=== PATIENT | female | born 1980 | race Caucasian/White ===

== ENCOUNTER 2016-12-02 17:52 | Observation (INO) | payer OTHER ==
[2016-12-02] MEDS: Terbutaline 1 MG/ML SDV SUBCUT SCH ×4 (18:50→20:39)
[2016-12-02] MEDS ORDERED: Lactated Ringers 500 ML IV ONE (18:50)
--- NOTE | 2016-12-02 21:08 | PCM.LDHP ---
L&D History of Present Illness - General Date of Service: 12/02/16 Admit Problem/Dx: Patient Status Order with Admit Dx/Problem 12/02/16 20:54 Patient Status [ADT] Routine Patient Status: Refer to Observation Admission Diagnosis/Problem: complications Reason for Admit: threatened labor Nurse Unit Type: Labor and Delivery Admitting Physician: Jim Benjamin Attending Physician: Jim Benjamin Medicare 96 Hour Certification Statement: This Patient is Admitted for Inpatient Services and is Medically Appropriate and Meets Medical Necessity for Inpatient Admission. I Reasonably Expect the Patient Will Require Inpatient Services That Span a Period of Time Over 2 Midnights. My Rationale for Medically Necessary Inpatient Care Will Be Found in the Admission History & Physical and Progress Notes. I Reasonably Expect the Patient to be Discharged or Transferred Within 96 Hours After Admission to This Critical [facility] Hospital. Admission Diagnosis/Problem Admission Diagnosis/Problem complications Source of Information: Patient History Limitations: Reports: No limitations - History of Present Illness Introduction:: 35-year-old, G5, P3, 013, GE 4 at estimated gestational age of 34 weeks 6 days presented to labor and delivery complaining of contractions hydrated with by mouth and IV fluids and given 3 doses of subcutaneous terbutaline 0.25 and continues to have irregular contractions. Previous x4. Group B strep negative. Patient lives in the [place]. Patient will be placed on observation status . Continue hydration through the night and reevaluation in the morning. Morphine 10 mg/Phenergan 25 mg IM now after permit for in case. 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 On Lovenox 40 mg subcutaneous daily for 6 weeks Timing/Duration: Reports: hour(s): Quality: Reports: Ache, Pressure Improves with: Reports: None Worsens with: Reports: None Associated Symptoms: Reports: N - Related Data Allergies/Adverse Reactions: Allergies Allergy/AdvReac Type Severity Reaction Status Date / Time No Known Allergies Allergy Verified 12/02/16 19:56 Home Medications: Home Meds PNV95/Ferrous Fumarate/FA [ Multivitamins] 1 tab PO DAILY 05/21/14 [ History] Past Medical History : 5 Para: 3 (4334) LMP (Approximate): Social & Family History - Tobacco Use Smoking Status *Q: Never Smoker Second Hand Smoke Exposure: No - Alcohol Use Days Per Week of Alcohol Use: 0 - Recreational Drug Use Recreational Drug Use: No H&P Review of Systems - Review of Systems: Review Of Systems: See Below General: Reports: no symptoms HEENT: Reports: no symptoms Pulmonary: Reports: No Symptoms Cardiovascular: Reports: no symptoms Gastrointestinal: Reports: No symptoms Genitourinary: Reports: no symptoms Musculoskeletal: Reports: no symptoms Skin: Reports: no symptoms Psychiatric: Reports: no symptoms Neurological: Reports: No Symptoms Hematologic/Lymphatic: Reports: no symptoms Immunologic: Reports: no symptoms L&D Exam - Exam Exam: See Below - Vital Signs Vital Signs: Last Vital Signs Temp 98.7 F 12/02/16 18:30 Pulse 86 12/02/16 18:30 Resp 18 12/02/16 18:30 BP 133/68 12/02/16 18:30 Pulse Ox Weight: 221 lb - OB Specific Fundal Height in cm: 35 Contraction Duration (sec): 60 Contraction Frequency (min): 13 Contraction Intensity: Mild movement: active heart tones: present heart tones per min: 155 Heart Rate (FHR) Variability: Moderate (6-25 bmp) Presentation: Vertex Estimated Weight: 6.5 - Cordova Score Cordova Score Cervix Position: Posterior Cordova Score Consistency: Soft Cordova Score Effacement: 0-30% Cordova Score Dilation: Closed Cordova Score 's Station: -3 Cordova Score Total: 2 - Exam General: alert, oriented HEENT: Mucosa moist & pink Neck: supple, trachea midline Lungs: Clear to auscultation, Normal respiratory effort Cardiovascular: regular rate, regular rhythm Abdomen: normal bowel sounds, soft Genitourinary: Normal external exam Extremities: normal inspection Skin: warm, dry, intact Psychiatric: alert, normal affect, normal mood - Patient Data Lab Results last 24 hrs: Laboratory Results - last 24 hr 12/02/16 Range/Units 18:10 Urine Color Light yellow (Yellow) Urine Appearance Slt cloudy H (Clear) Urine pH 7.0 (5.0-8.0) Ur Specific [place] 1.020 (1.005-1.030) Urine Protein Negative (Negative) Urine Glucose (UA) Negative (Negative) Urine Ketones Negative (Negative) Urine Occult Blood Negative (Negative) Urine Nitrite Negative (Negative) Urine Bilirubin Negative (Negative) Urine Urobilinogen 0.2 (0.2-1.0) Ur Leukocyte Esterase Negative (Negative) Urine RBC Not seen (0-5) /hpf Urine WBC 0-5 (0-5) /hpf Ur Squamous Epith Cells 40-50 H (0-5) /hpf Urine Bacteria Few (FEW) /hpf Urine Mucus Not seen (FEW) /hpf - Problem List (1) 34 weeks gestation of SNOMED Code(s): 35556911 ICD Code: Z3A.34 - 34 WEEKS GESTATION OF Status: Acute Current Visit: Yes (2) contractions SNOMED Code(s): 796811932 ICD Code: O47.9 - FALSE LABOR, UNSPECIFIED Status: Acute Current Visit: Yes (3) Maternal care for scar from previous delivery SNOMED Code(s): 465453280 ICD Code: O34.219 - MATERNAL CARE FOR UNSP TYPE SCAR FROM PREVIOUS DEL Status: Acute Current Visit: Yes Qualifiers: Previous delivery type: low transverse Qualified Code(s): O34.211 - Maternal care for low transverse scar from previous delivery (4) Heterozygous for prothrombin [id number] mutation SNOMED Code(s): 979188873 ICD Code: D68.8 - OTHER SPECIFIED COAGULATION DEFECTS Status: Acute Current Visit: Yes (5) 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 SNOMED Code(s): 937585483 ICD Code: D68.8 - OTHER SPECIFIED COAGULATION DEFECTS Status: Acute Current Visit: Yes Problem List Initiated/Reviewed/Updated: No Orders Last 24hrs: Active Orders 24 hr Category Date Time Status Patient Status [ADT] Routine ADT 12/02/16 20:54 Ordered Bedrest Bathroom Privileges [RC] ASDIRECTED Care 12/02/16 20:53 Ordered Heart Tones [RC] CONTINUOUS Care 12/02/16 20:55 Ordered NST [ Non Stress Test] [RC] PER UNIT ROUTINE Care 12/02/16 19:31 Active Notify Provider [RC] PRN Care 12/02/16 20:53 Ordered OB Check [OM.PC] Click To Edit Care 12/02/16 19:31 Ordered Verify Patient Consent Obtain [RC] ASDIRECTED Care 12/02/16 20:57 Ordered Vital Signs [RC] PER UNIT ROUTINE Care 12/02/16 20:53 Ordered Nothing Per Oral Diet [DIET] Diet 12/02/16 Dinner Ordered CBC WITH AUTO DIFF [HEME] Stat Lab 12/02/16 21:01 Ordered CULTURE URINE [RM] Stat Lab 12/02/16 18:10 Received TYPE AND SCREEN [BBK] Stat Lab 12/02/16 21:01 Ordered Lactated Ringers [Ringers, Lactated] 1,000 ml Med 12/02/16 21:00 Ordered IV ASDIRECTED Morphine Med 12/02/16 22:00 Once 10 mg IM ONETIME ONE Promethazine [Phenergan] Med 12/02/16 22:00 Once 25 mg IM ONETIME ONE Resuscitation Status Routine Resus Stat 12/02/16 20:53 Ordered Medication Orders Lactated Ringer's (Ringers, Lactated) 1,000 mls @ 150 mls/hr IV ASDIRECTED TIFFANY Morphine Sulfate (Morphine) 10 mg IM ONETIME ONE Stop: 12/02/16 22:01 Promethazine HCl (Phenergan) 25 mg IM ONETIME ONE Stop: 12/02/16 22:01 Assessment/Plan Comment:: 24 observation status, and reevaluation in a.m.
--- NOTE | 2016-12-02 21:48 | PCM.SN ---
- Free Text/Narrative Note: NST reactive. Irregular contractions, appear to be subsiding.
[2016-12-02] MEDS ORDERED: Promethazine 25 MG/ML SDV IM ONE (22:00)
[2016-12-02] MEDS ORDERED: Morphine 10 MG/ML Syringe IM ONE (22:00)
[2016-12-02] MEDS: Lactated Ringers 1,000 ML IV SCH (22:28)
[2016-12-03] MEDS: Lactated Ringers 1,000 ML IV SCH ×3 (03:05→12:45)
[2016-12-03] MEDS ORDERED: Morphine 10 MG/ML Syringe IM ONE (03:24)
[2016-12-03] MEDS ORDERED: Promethazine 25 MG/ML SDV IM ONE (03:26)
--- NOTE | 2016-12-03 07:02 | PCM.SN ---
- Free Text/Narrative Note: Irregular contractions continue through the night. Given Morphine 10 mg/ Phenergan 25 mg again IM about 0330. Contractions decreased in frequency and have become closed together. Two variable decelerations during the night. BPP ordered now.
[2016-12-03] MEDS ORDERED: NIFEdipine 10 MG Cap ONE (10:08)
[2016-12-03] MEDS ORDERED: Acetaminophen/oxyCODONE 325-5 MG Tab PO PRN (10:27)
--- NOTE | 2016-12-03 10:29 | US ---
Biophysical profile: Multiple real-time images were obtained transabdominally. Comparison: Previous studies are available, most recent is 10/03/16. Dates: LMP: LMP given as 04/02/16, GE 01/07/17, gestational age 35 weeks 0 days Current ultrasound: GE 12/28/16, gestational age 36 weeks 3 days Earliest ultrasound (09/02/16): GE 01/03/17, gestational age 35 weeks 4 days presentation: Cephalic Placenta: Anterior Amniotic fluid: JERMAIN 23.91 cm Measurements: BPD: 9.13 cm - 37 weeks 1 day Head circumference: 33.11 cm - 37 weeks 6 days Abdominal circumference: 33.51 cm - 37 weeks 3 days Femur length: 6.35 cm - 32 weeks 6 days Estimated weight: 2901 g (6 lbs. 6 oz.), estimated weight at the 49th percentile for age by current ultrasound Heart rate: 152 bpm Cervical length: 4.7 cm Growth curves: Growth between the mean and +2 standard deviation lines. Growth felt to be appropriate from prior studies. Biophysical profile: movement 2, breathing movement 0, tone 2, amniotic fluid volume 2 Impression: 1. Single intrauterine fetus currently cephalic in presentation. Dates as noted above. 2. Slightly elevated JERMAIN at 23.91 cm comparing to 17.25 cm on most recent study. 3. 6 out of 8 on biophysical profile. Diagnostic code #5 Scanning technologist gave preliminary report to referring health care provider at exam's completion.
[2016-12-03] MEDS ORDERED: NIFEdipine 10 MG Cap PO SCH (10:30)
[2016-12-03 11:15] VITALS: BP 124/53
--- NOTE | 2016-12-04 06:33 | PCM.DCSUM1 ---
Discharge Summary - Hospital Course Free Text/Narrative:: Anette is a 35-year-old 5 para 3013 female who is evaluated in labor and delivery for contractions. He's been going on for approximately one week. They are very irregular but are painful. She is presently at 35-0/7 weeks gestational age with an GE that us firmly set at 01/07/2017. She has a history of 3 previous sections and planning to have a repeat section at 39 weeks. She has had no bleeding, loss of vaginal fluid. Her heart monitoring has been within normal limits. Her biophysical profile is normal and her NST is reactive. The ultrasound shows no evidence of abruption placenta or other problems which are felt to potentially compromise the baby for the remainder of the . Her contraction pattern shows contractions approximately 15 minutes. She says they are possibly 6-8 on a scale of 10. The are however, not progressive in nature and did not appear to change the cervix. Her cervix has remained closed, thick and very high. Her vital signs have been stable. She's been tried on terbutaline but with no significant improvement. One dose of nifedipine also did not improve her contraction pattern or decrease her pain associated with her contractions. She did have some nausea with nifedipine first not to be on it. She also prefers not any pain medication at this time. She is discharged today to home. Prior to discharge options of care have been discussed with her. These include conservative management with discharge home with possibility of analgesia. Have already reviewed the possibility of other tocolytic therapy but the patient is not interested in this. If increasing contractions occurs would recommend repeat section because of her history of 3 previous C-sections. At this gestational age pediatrics here in [place] is carpal with the baby delivering here but with the understanding that the baby may need to be transferred if lung maturity is noted. The alternative of sending the patient to [place] where intensive care unit services are available is also discussed and patient is not interested in this. She is interested in monitoring and waiting and feels that she can put up with discomfort. She is aware of the importance of activity as an indicator of well-being. - Discharge Data Discharge Date: 12/03/16 Discharge Disposition: Home, Self-Care 01 Condition: Good - Patient Instructions Diet: Regular Diet as Tolerated Activity: As Tolerated Driving: Do Not Drive Showering/Bathing: May Shower (May take bath) Notify Provider of: Fever, Increased Pain, Swelling and Redness, Drainage, Nausea and/or Vomiting - Discharge Plan Home Medications: Home Meds PNV95/Ferrous Fumarate/FA [ Multivitamins] 1 tab PO DAILY 05/21/14 [ History] Aspirin 12/02/16 [History] Referrals: Yadiel Wilder MD [Physician] - (Return to clinic-[facility]-as scheduled-Dr. Wilder.) - Discharge Summary/Plan Comment DC Time >30 min.: No Discharge Summary/Plan Comment: Discharge instructions: 1. Discharge home 2. Regular, high firm, diet was increased calcium and calories. 3. Precautions given concern increased pain, bleeding, leakage of amniotic fluid , contractions, decreased activity. 4. Medications per medication as printed, discussed with him given to the patient. 5. Return to clinic as scheduled with Dr. Wilder-[facility]. Diagnosis: contractions/abdominal pain in [id number]/7 weeks Condition: Good - Patient Data Vitals - Most Recent: Last Vital Signs Temp 37.1 C 12/02/16 18:30 Pulse 86 12/02/16 18:30 Resp 18 12/02/16 18:30 BP 124/53 L 12/03/16 10:12 Pulse Ox Weight - Most Recent: 100.244 kg I&O - Last 24 hours: Intake & Output 12/03/16 12/03/16 12/04/16 14:59 22:59 06:59 Intake Total 1999 Balance 1999 Med Orders - Current: Current Medications Discontinued Medications Lactated Ringer's (Ringers, Lactated) 500 mls @ 500 mls/hr IV .BOLUS ONE Stop: 12/02/16 19:49 Last Infusion: 12/02/16 20:29 Dose: Infused Lactated Ringer's (Ringers, Lactated) 1,000 mls @ 150 mls/hr IV ASDIRECTED [facility] Last Admin: 12/03/16 07:16 Dose: 150 mls/hr Morphine Sulfate (Morphine) 10 mg IM ONETIME ONE Stop: 12/02/16 22:01 Last Admin: 12/02/16 21:31 Dose: 10 mg Morphine Sulfate (Morphine) 10 mg IM ONETIME ONE Stop: 12/03/16 03:25 Last Admin: 12/03/16 03:40 Dose: 10 mg Nifedipine (Procardia) Confirm Administered Dose 10 mg .ROUTE .STK-MED ONE Stop: 12/03/16 10:09 Last Admin: 12/03/16 16:24 Dose: Not Given Nifedipine (Procardia) 10 mg PO Q6H [facility] Last Admin: 12/03/16 10:12 Dose: 10 mg Oxycodone/Acetaminophen (Percocet 325-5 Mg) 2 tab PO Q4H PRN PRN Reason: Pain Promethazine HCl (Phenergan) 25 mg IM ONETIME ONE Stop: 12/02/16 22:01 Last Admin: 12/02/16 21:27 Dose: 25 mg Promethazine HCl (Phenergan) 25 mg IM ONETIME ONE Stop: 12/03/16 03:27 Last Admin: 12/03/16 03:39 Dose: 25 mg Terbutaline Sulfate (Brethine) 0.25 mg SUBCUT Q30M TIFFANY Last Admin: 12/02/16 20:39 Dose: 0.25 mg *Q Meaningful Use (DIS) - VTE *Q VTE Criteria *Q: - Stroke *Q Stroke Criteria *Q: - AMI *Q AMI Criteria *Q:
== END 2016-12-03 14:20 | disposition home or self-care (01) ==
LOC: JD.OBCHECK 17:52 → JD.OB 17:52 → JD.OBCHECK 20:54 → JD.MS 12-03 08:27 → JD.OB 12-03 15:09
PROVIDERS: ADMIT Obstetrics & Gynecology; ATTEND Obstetrics & Gynecology
DX: O47.9 False labor, unspecified (principal); O34.211 Maternal care for low transverse scar from previous cesarean delivery; D68.8 Other specified coagulation defects; Z3A.34 34 weeks gestation of pregnancy; Z79.899 Other long term (current) drug therapy
CPT/HCPCS: 36415; 59025; 76816; 76819; 81001; 85025; 86850; 86900; 86901; 87086; A9270; J2270; J2550; J3105; J7120; 96360; 96361; 96372; G0378

== ENCOUNTER 2016-12-18 08:56 | Inpatient (IN) | payer OTHER ==
--- NOTE | 2016-12-18 11:24 | US ---
Biophysical profile: Multiple real-time images were obtained transabdominally. Comparison: Previous studies are available, most recent is 12/03/16. Dates: LMP: LMP given as 04/02/16, GE 01/07/17, gestational age 37 weeks 1 day Current ultrasound: GE 12/30/16, gestational age 38 weeks 2 days Earliest ultrasound (09/02/16): GE 01/03/17, gestational age 37 weeks 5 days presentation: Cephalic Placenta: Anterior Amniotic fluid: JERMAIN 20.62 cm Measurements: BPD: 9.72 cm - 39 weeks 6 days Head circumference: 33.16 cm - 37 weeks 6 days Abdominal circumference: 34.24 cm - 38 weeks 2 days Femur length: 7.17 cm - 36 weeks 6 days Estimated weight: 3362 g (7 lbs. 7 oz.), estimated weight at the 56th percentile for age by current ultrasound Heart rate: 150 bpm Cervical length: 3.6 cm Growth curves: Growth between the mean and +2 standard deviation lines. Growth is felt to be appropriate from prior studies. Biophysical profile: movement 2, breathing movement 2, tone 2, amniotic fluid volume 2 Impression: 1. Single intrauterine fetus currently cephalic in presentation. Dates as noted above. 2. growth felt to be appropriate from prior exams. 3. 8 out of 8 on biophysical profile. Diagnostic code #1
[2016-12-18] MEDS ORDERED: Lactated Ringers 1,000 ML ONE ×2 (13:17→15:25)
--- NOTE | 2016-12-18 13:25 | PCM.PREANE ---
Preanesthetic Assessment - Anesthesia/Transfusion/Family Hx Anesthesia History: Prior Anesthesia Without Reaction Transfusion History: No Prior Transfusion(s) - Physical Assessment Vital Signs: Last Vital Signs Temp 37.0 C 12/18/16 12:02 Pulse 93 12/18/16 12:02 Resp BP 146/84 H 12/18/16 12:02 Pulse Ox Height: 1.6 m Weight: 100.244 kg - Lab Values: Laboratory Last Values Urine Color Light yellow (Yellow) 12/18/16 10:38 Urine Appearance Slt cloudy (Clear) H 12/18/16 10:38 Urine pH 7.0 (5.0-8.0) 12/18/16 10:38 Ur Specific [place] 1.015 (1.005-1.030) 12/18/16 10:38 Urine Protein Negative (Negative) 12/18/16 10:38 Urine Glucose (UA) Negative (Negative) 12/18/16 10:38 Urine Ketones Negative (Negative) 12/18/16 10:38 Urine Occult Blood Negative (Negative) 12/18/16 10:38 Urine Nitrite Negative (Negative) 12/18/16 10:38 Urine Bilirubin Negative (Negative) 12/18/16 10:38 Urine Urobilinogen 0.2 (0.2-1.0) 12/18/16 10:38 Ur Leukocyte Esterase Negative (Negative) 12/18/16 10:38 - Allergies Allergies/Adverse Reactions: Allergies Allergy/AdvReac Type Severity Reaction Status Date / Time No Known Allergies Allergy Verified 12/02/16 19:56 PreAnesthesia Questionnaire PATIENT CASE MANAGER History: Reports: , Spontaneous , Other (see below) Other OB/BYN History: previous c-sections 2007, 2009, 2012. D & C 2014 Hematologic History: Reports: Bleeding disorder, Other (see below) Other Hematologic History: prothrombin mutation - Infectious Disease History Infectious Disease History: Reports: Chicken pox - Past Surgical History HEENT Surgical History: Reports: Tonsillectomy, Other (see below) Other HEENT Surgeries/Procedures: tonsillectomy 1987 Musculoskeletal Surgical History: Reports: Arthroscopic knee, Other (see below) Other Musculoskeletal Surgeries/Procedures:: right hand surgery 2005 - SUBSTANCE USE Smoking Status *Q: Never Smoker Second Hand Smoke Exposure: No Days Per Week of Alcohol Use: 0 Recreational Drug Use History: No - HOME MEDS Home Medications: Home Meds PNV95/Ferrous Fumarate/FA [ Multivitamins] 1 tab PO DAILY 05/21/14 [ History] Aspirin 12/02/16 [History] Preanesthetic Assessment - ANESTHESIA/TRANSFUSION/FAMILY HX Anesthesia/Transfusion History: No Prior Transfusion(s), Prior Anesthesia ( reports no problems ) Family History of Anesthesia Reaction: No Intubation History: Unknown Type of Transfusion Reactions: Reports: Unknown - REVIEW OF SYSTEMS Constitutional: Reports: cold symptoms ICE CREAM DIPPER: Reports: no symptoms Respiratory: Reports: cough Cardiovascular: Reports: no symptoms GI: Reports: no symptoms Other: Reports: None - PHYSICAL ASSESSMENT HR: 83 O2 Sat by Pulse Oximetry: 98 RR: 20 BP: 154/89 Temp: 37.0 C Vital Signs: Last Vital Signs Temp 37.0 C 12/18/16 12:02 Pulse 93 12/18/16 12:02 Resp BP 146/84 H 12/18/16 12:02 Pulse Ox Height: 1.6 m Weight: 100.244 kg NPO Status Date: 12/18/16 NPO Status Time: 06:30 ASA Class: 2 Mental Status: Alert & Oriented x3 Airway Class: Mallampati = 1 Dentition: Reports: Normal Dentition Thyro-Mental Finger Breadths: 3 Mouth Opening Finger Breadths: 3 ROM/Head Extension: Full Respiratory Status: lungs clear to auscultation bilaterally Cardiovascular Status: regular rate & rhythm, normal S1, S2, no murmur, blood pressure WNL - LAB Values: Laboratory Last Values Urine Color Light yellow (Yellow) 12/18/16 10:38 Urine Appearance Slt cloudy (Clear) H 12/18/16 10:38 Urine pH 7.0 (5.0-8.0) 12/18/16 10:38 Ur Specific [place] 1.015 (1.005-1.030) 12/18/16 10:38 Urine Protein Negative (Negative) 12/18/16 10:38 Urine Glucose (UA) Negative (Negative) 12/18/16 10:38 Urine Ketones Negative (Negative) 12/18/16 10:38 Urine Occult Blood Negative (Negative) 12/18/16 10:38 Urine Nitrite Negative (Negative) 12/18/16 10:38 Urine Bilirubin Negative (Negative) 12/18/16 10:38 Urine Urobilinogen 0.2 (0.2-1.0) 12/18/16 10:38 Ur Leukocyte Esterase Negative (Negative) 12/18/16 10:38 - ALLERGIES Allergies/Adverse Reactions: Allergies Allergy/AdvReac Type Severity Reaction Status Date / Time No Known Allergies Allergy Verified 12/02/16 19:56 - BLOOD Blood Available: No Product(s) Available: None - ANESTHESIA PLAN Preop Beta [place]ito: No Anesthesia Type Planned: Spinal - ACKNOWLEDGEMENTS Pt an Appropriate Candidate for the Planned Anesthesia: Yes Alternatives and Risks of Anesthesia Discussed w Pt/Guardian: Yes Pt/Guardian Understands and Agrees with Anesthesia Plan: Yes
[2016-12-18] MEDS ORDERED: Citric Acid/Sodium Citrate Solution 30 ML Cup PO ONE (13:29)
[2016-12-18] MEDS ORDERED: ceFAZolin 2 GM in Premix Bag 1 BAG IV ONE (13:29)
[2016-12-18] MEDS ORDERED: Metoclopramide 10 MG/2 ML SDV IVPUSH ONE (13:29)
[2016-12-18] MEDS ORDERED: Sodium Chloride 0.9% 10 ML Syringe FLUSH PRN (13:29)
[2016-12-18] MEDS ORDERED: Lactated Ringers 1,000 ML IV SCH (13:30)
[2016-12-18] MEDS ORDERED: Bupivacaine 0.5% 30 ML SDV ONE (13:37)
[2016-12-18] MEDS ORDERED: Ondansetron 4 MG/2 ML SDV ONE (13:53)
[2016-12-18] MEDS ORDERED: ceFAZolin 1 GM Vial ONE (13:53)
[2016-12-18] MEDS ORDERED: Morphine PF 10 MG/10 ML SDV ONE (13:53)
[2016-12-18] MEDS ORDERED: Ketorolac 30 MG/ML SDV ONE (13:53)
[2016-12-18] MEDS ORDERED: Oxytocin 10 Units/1 ML SDV ONE (13:53)
--- NOTE | 2016-12-18 14:13 | PCM.LDHP ---
<Mary Cruz - Last Filed: 12/18/16 14:20> L&D History of Present Illness - General Date of Service: 12/18/16 Admit Problem/Dx: Patient Status Order with Admit Dx/Problem 12/18/16 13:29 Patient Status [ADT] Routine Admission Diagnosis/Problem Admission Diagnosis/Problem Normal 12/18/16 13:40 Intrauterine at 37-1/7 weeks gestation, presenting for repeat section. Source of Information: Patient History Limitations: Reports: No limitations - History of Present Illness Introduction:: History of Present Illness: Anette is a 35-year-old 5 para 3-0-1-3 female at 37-1/7 weeks gestational age who presents for repeat section. She has a history of sections x3, macrosomia, bleeding disorder, and contractions. GE is 01/07/17 based on LMP on 04/02/16 and confirmed by early ultrasound. She has been having contractions for a few weeks now but they just recently started becoming more frequent and more painful. Today in clinic, patient stated that contractions "are starting to take my breath away". She was sent down to labor and delivery to be monitored. Contractions were found to be 3-4 minutes apart. It was then decided to proceed with the section. course: The patient has received regular care. This is considered a high-risk for a few reasons. 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 She was on aspirin during for a while but stopped a few weeks ago when she had a bad bloody nose. She will be started on Lovenox following delivery. An "echogenic focus" was seen on routine anatomy ultrasound in the left ventricle of baby's heart. It was difficult to visualize and was followed-up with another ultrasound but found to be within normal limits. She has also had abdominal pain and contractions during this . She has been on L&D for monitoring due to contractions. The contractions were 15-20 minutes apart and more irritating for the patient. Today , they are stronger and more frequent. She does plan to nurse. Refused influenza vaccine. 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 First baby was born in 2007, weight 7lbs, 10oz, and was delivered via primary section due to a "small pelvis". Second baby was born in 2009, weighed 9lbs, 12oz, and was delivered via repeat section. With this she did have some contractions and labor patterns that were successfully stopped with terbutaline. Third baby was delivered in 2012 via repeat section. Baby weighed 8lbs, 4oz. Most recent ended in a first-trimester spontaneous in 2014. This is her fifth . GE 01/07/17 based on definite LMP on 04/02/16 and confirmed via ultrasound. Prior to this , menses were regular , occurring every 28 to 30 days, were of normal length and amount. Menarche at 14. She was not on BCP at the time of conception. She has no history of STIs. Blood type A positive, antibody negative. Rubella immune. VDRL/RPR nonreactive. Hepatitis B surface antigen negative. HIV negative. Chlamydia and gonorrhea PCR negative. GBS negative. Patient refused influenza vaccine. Tdap given. 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 - PGM: alive with dementia - PGF: MVA, - FOB, PGM: von Willebrand Disease Social History: Anette lives 40 [place] away from [place] with her and three children. She denies use of tobacco products, alcohol, and drugs of abuse. Review of Systems: General: Weight changes, fatigue, insomnia related to . Skin: No rashes, lesions, pruritis. Head/Neurologic: No headaches, dizziness, blurry vision. Cardiac: No palpitations, history or murmur, etc. Respiratory: No wheezing or cough. GI: Good appetite. No nausea/vomiting. : Problems related to . Musculoskeletal: No muscle weakness or pain. Some swelling in hands and feet. Noticed hand swelling a few days ago. Physical Exam: General: Patient is a pleasant, well-kept female who appears her stated age and is in no acute distress. Vitals: BP 154/89, pulse 83, respiration 20, temperature 37 degrees Celsius, oxygen saturation 98%. HEENT: Normocephalic, atraumatic. PERRLA. Neck: Supple, no masses. Heart: Regular rate and rhythm, no murmurs. Respiratory: Lungs clear to auscultation bilaterally. Abdomen: Gravid, appropriate for gestational age. Musculoskeletal: Mild edema in both upper and lower extremities, bilaterally. Cervix: Deferred due to section. 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 D & C 2014 Hematologic History: Reports: Bleeding disorder, Other (see below) Other Hematologic History: prothrombin mutation - Infectious Disease History Infectious Disease History: Reports: Chicken pox - Past Surgical History HEENT Surgical History: Reports: Tonsillectomy, Other (see below) Other HEENT Surgeries/Procedures: tonsillectomy 1987 Musculoskeletal Surgical History: Reports: Arthroscopic knee, Other (see below) Other Musculoskeletal Surgeries/Procedures:: right hand surgery 2005 Social & Family History - Tobacco Use Smoking Status *Q: Never Smoker Second Hand Smoke Exposure: No - Caffeine Use Caffeine Use: Reports: Coffee Other Caffeine Use: 1 cup per day - Alcohol Use Days Per Week of Alcohol Use: 0 - Recreational Drug Use Recreational Drug Use: No H&P Review of Systems - Review of Systems: Review Of Systems: See Below L&D Exam - Exam Exam: See Below - Vital Signs Vital Signs: Last Vital Signs Temp 37.0 C 12/18/16 13:34 Pulse 83 12/18/16 13:34 Resp 20 12/18/16 13:34 BP 154/89 H 12/18/16 13:34 Pulse Ox 98 12/18/16 13:34 Weight: 101.605 kg - Patient Data Lab Results last 24 hrs: Laboratory Results - last 24 hr 12/18/16 Range/Units 10:38 Urine Color Light yellow (Yellow) Urine Appearance Slt cloudy H (Clear) Urine pH 7.0 (5.0-8.0) Ur Specific [place] 1.015 (1.005-1.030) Urine Protein Negative (Negative) Urine Glucose (UA) Negative (Negative) Urine Ketones Negative (Negative) Urine Occult Blood Negative (Negative) Urine Nitrite Negative (Negative) Urine Bilirubin Negative (Negative) Urine Urobilinogen 0.2 (0.2-1.0) Ur Leukocyte Esterase Negative (Negative) Result Diagrams: 12/18/16 13:45 Problem List Initiated/Reviewed/Updated: Yes Orders Last 24hrs: Active Orders 24 hr Category Date Time Status Patient Status [ADT] Routine ADT 12/18/16 13:29 Active Communication Order [RC] ROUTINE Care 12/18/16 13:29 Active Heart Tones [RC] PER UNIT ROUTINE Care 12/18/16 13:29 Active Peripheral IV Care [RC] . DIRECTED Care 12/18/16 13:31 Active Procedure Site Prep Instruct [RC] ASDIRECTED Care 12/18/16 13:29 Active Verify Patient Consent Obtain [RC] PER UNIT ROUTINE Care 12/18/16 13:29 Active Vital Signs [RC] PFP Care 12/18/16 13:29 Active CBC W/O DIFF,HEMOGRAM [HEME] Stat Lab 12/18/16 13:29 Ordered TYPE AND SCREEN [BBK] Routine Lab 12/18/16 13:29 Ordered Lactated Ringers [Ringers, Lactated] 1,000 ml Med 12/18/16 13:30 Active IV ASDIRECTED Sodium Chloride 0.9% [Saline Flush] Med 12/18/16 13:29 Active 10 ml FLUSH ASDIRECTED PRN ceFAZolin [Ancef] 2 gm Med 12/18/16 13:29 Active Premix Bag 1 bag IV ONETIME Peripheral IV Insertion Adult [OM.PC] Routine Oth 12/18/16 13:29 Ordered Schedule Procedure [COMM] Per Unit Routine Oth 12/18/16 13:29 Ordered Resuscitation Status Routine Resus Stat 12/18/16 13:29 Ordered Medication Orders Lactated Ringer's (Ringers, Lactated) 1,000 mls @ 125 mls/hr IV ASDIRECTED TIFFANY Cefazolin Sodium/Dextrose 2 gm (/ Premix) 50 mls @ 100 mls/hr IV ONETIME ONE Stop: 12/18/16 13:58 Sodium Chloride (Saline Flush) 10 ml FLUSH ASDIRECTED PRN PRN Reason: Keep Vein Open Assessment: - Intrauterine at 37-/7 for repeat section - contractions - History of c/s x3 - Prothrombin [id number] mutation - Plans to breast feed - Tdap given, influenza vaccine refused. Plan: - Repeat lower uterine segment transverse section. Procedure, risks, benefits, possible complications, and alternatives of care were discussed with the patient. She understands and agrees with the treatment plan. - DVT prophylaxis with SCDs during the operation and after until up and walking - Infection prophylaxis with Ancef 2g via IV - Routine preoperative testing with CBC, urinalysis, and blood type and screen. - Encourage breast feeding behavior <Yadiel Wilder - Last Filed: 12/18/16 21:55> L&D History of Present Illness - General Admit Problem/Dx: Admission Diagnosis/Problem Admission Diagnosis/Problem Normal L&D Exam - Vital Signs Vital Signs: Last Vital Signs Temp 36.7 C 12/18/16 16:25 Pulse 68 12/18/16 18:32 Resp 16 12/18/16 21:00 BP 120/70 12/18/16 18:32 Pulse Ox 99 12/18/16 18:32 - Patient Data Lab Results last 24 hrs: Laboratory Results - last 24 hr 12/18/16 12/18/16 12/18/16 Range/Units 10:38 13:45 13:45 WBC 9.43 (3.98-10.04) K/mm3 RBC 3.57 L (3.98-5.22) M/mm3 Hgb 10.9 L (11.2-15.7) gm/L Hct 32.8 L (34.1-44.9) % MCV 91.9 (79.4-94.8) fl MCH 30.5 (25.6-32.2) pg MCHC 33.2 (32.2-35.5) g/dl RDW Std Deviation 43.0 (36.4-46.3) fL Plt Count 240 (182-369) K/mm3 MPV 9.4 (9.4-12.3) fl Urine Color Light yellow (Yellow) Urine Appearance Slt cloudy H (Clear) Urine pH 7.0 (5.0-8.0) Ur Specific [place] 1.015 (1.005-1.030) Urine Protein Negative (Negative) Urine Glucose (UA) Negative (Negative) Urine Ketones Negative (Negative) Urine Occult Blood Negative (Negative) Urine Nitrite Negative (Negative) Urine Bilirubin Negative (Negative) Urine Urobilinogen 0.2 (0.2-1.0) Ur Leukocyte Esterase Negative (Negative) Blood Type A POSITIVE Gel Antibody Screen Negative Result Diagrams: 12/18/16 13:45 Orders Last 24hrs: Post op DVT prophylaxis with Lovenox 40 mg SQ q day x 6 weeks postop Active Orders 24 hr Category Date Time Status Ambulate [RC] PER UNIT ROUTINE Care 12/18/16 16:41 Active Antiembolic Devices [RC] PER UNIT ROUTINE Care 12/18/16 16:41 Active Communication Order [RC] ASDIRECTED Care 12/18/16 15:19 Inactive Communication Order [RC] PER UNIT ROUTINE Care 12/18/16 16:41 Active Communication Order [RC] PER UNIT ROUTINE Care 12/18/16 16:41 Active Communication Order [RC] PER UNIT ROUTINE Care 12/18/16 16:41 Active Communication Order [RC] ROUTINE Care 12/18/16 15:19 Inactive Cooling Warming Measures [RC] ASDIRECTED Care 12/18/16 15:20 Inactive Heart Tones [RC] PER UNIT ROUTINE Care 12/18/16 13:29 Inactive Intake and Output [RC] Q4H Care 12/18/16 16:41 Active May Shower [RC] PER UNIT ROUTINE Care 12/18/16 16:41 Active Notify Provider Intake and Out [RC] ASDIRECTED Care 12/18/16 16:41 Active Notify Provider [RC] ASDIRECTED Care 12/18/16 15:20 Inactive Oxygen Therapy [RC] ASDIRECTED Care 12/18/16 15:20 Inactive Pulse Oximetry [RC] ASDIRECTED Care 12/18/16 15:20 Inactive Urinary Catheter Removal [RC] Per Unit Routine Care 12/19/16 15:37 Active Vital Signs [RC] PFP Care 12/18/16 13:29 Inactive Vital Signs [RC] Q15M Care 12/18/16 15:20 Inactive Vital Signs [RC] Q1H Care 12/18/16 15:20 Inactive Vital Signs [RC] Q1HR Care 12/18/16 16:41 Active Clear Liquid Diet [DIET] Diet 12/18/16 Dinner Active CBC W/O DIFF,HEMOGRAM [HEME] MOTH@0700 Lab 12/19/16 07:00 Ordered CBC W/O DIFF,HEMOGRAM [HEME] MOTH@0700 Lab 12/23/16 07:00 Ordered CBC W/O DIFF,HEMOGRAM [HEME] MOTH@0700 Lab 12/26/16 07:00 Ordered CBC W/O DIFF,HEMOGRAM [HEME] MOTH@0700 Lab 12/30/16 07:00 Ordered CBC W/O DIFF,HEMOGRAM [HEME] MOTH@0700 Lab 01/02/17 07:00 Ordered CBC W/O DIFF,HEMOGRAM [HEME] MOTH@0700 Lab 01/06/17 07:00 Ordered CBC WITH AUTO DIFF [HEME] AM Lab 12/19/16 05:11 Ordered Acetaminophen/oxyCODONE [Percocet 325-5 MG] Med 12/18/16 16:41 Active 2 tab PO Q4H PRN Dextrose 5%-0.45% NaCl [Dextrose 5%-1/2 NS] 1,000 ml Med 12/18/16 16:41 Active IV ASDIRECTED Dextrose 5%-Lactated Ringers 1,000 ml Med 12/18/16 16:41 Active IV ASDIRECTED Docusate Sodium [Colace] Med 12/18/16 16:41 Active 100 mg PO Q12H PRN Enoxaparin [Lovenox] Med 12/18/16 22:00 Active 40 mg SUBCUT Q24H Ibuprofen [Motrin] Med 12/18/16 20:00 Active 800 mg PO Q8H Lanolin [Lansinoh HPA] Med 12/18/16 16:41 Active See Dose Instructions TOP ASDIRECTED PRN Naloxone [Narcan] Med 12/18/16 16:41 Active 0.1 mg IVPUSH SEECOMMENT PRN Ondansetron [Zofran] Med 12/18/16 16:41 Active 4 mg IV Q4H PRN Simethicone Med 12/18/16 18:00 Active 80 mg PO PCBED diphenhydrAMINE [Benadryl] Med 12/18/16 16:41 Active 25 mg IVPUSH Q6H PRN ePHEDrine [ePHEDrine Sulfate] Med 12/18/16 16:41 Active 5 mg IVPUSH SEECOMMENT PRN Assess Lochia [WOMSER] Per Unit Routine Ot 12/18/16 16:41 Ordered Assess Uterine Involution [WOMSER] Per Unit Routine Ot 12/18/16 16:41 Ordered Breast Pump [WOMSER] Per Unit Routine Oth 12/18/16 16:41 Ordered Heat Therapy [OM.PC] Per Unit Routine Ot 12/18/16 16:41 Ordered Medication Administration Instruction [OM.PC] Routine Ot 12/18/16 16:41 Ordered Sequential Compression Device [OM.PC] Per Unit Routine Oth 12/18/16 16:41 Ordered Resuscitation Status Routine Resus Stat 12/18/16 13:29 Ordered Medication Orders Diphenhydramine HCl (Benadryl) 25 mg IVPUSH Q6H PRN PRN Reason: Itching or Nausea Last Admin: 12/18/16 20:37 Dose: 25 mg Docusate Sodium (Colace) 100 mg PO Q12H PRN PRN Reason: Constipation Emollient Ointment (Lansinoh Hpa) 0 gm TOP ASDIRECTED PRN PRN Reason: Sore Nipples Enoxaparin Sodium (Lovenox) 40 mg SUBCUT Q24H [facility] Ephedrine Sulfate (Ephedrine Sulfate) 5 mg IVPUSH SEECOMMENT PRN PRN Reason: Other Dextrose/Sodium Chloride (Dextrose 5%-1/2 Ns) 1,000 mls @ 125 mls/hr IV ASDIRECTED [facility] Dextrose/Lactated Ringer's (Dextrose 5%-Lactated Ringers) 1,000 mls @ 125 mls/ hr IV ASDIRECTED [facility] Stop: 12/19/16 00:40 Ibuprofen (Motrin) 800 mg PO Q8H [facility] Last Admin: 12/18/16 20:36 Dose: 800 mg Naloxone HCl (Narcan) 0.1 mg IVPUSH SEECOMMENT PRN PRN Reason: Respiratory Depression Ondansetron HCl (Zofran) 4 mg IV Q4H PRN PRN Reason: Nausea/Vomiting Oxycodone/Acetaminophen (Percocet 325-5 Mg) 2 tab PO Q4H PRN PRN Reason: Pain (moderate 4-6) Simethicone (Simethicone) 80 mg PO PCBED [facility] Last Admin: 12/18/16 18:51 Dose: 80 mg
[2016-12-18] MEDS ORDERED: Meperidine PF 50 MG/ML Syringe IVPUSH PRN (15:20)
[2016-12-18] MEDS ORDERED: Ondansetron 4 MG/2 ML SDV IVPUSH PRN (15:20)
[2016-12-18] MEDS ORDERED: ePHEDrine 50 MG/ML SDV IVPUSH PRN ×2 (15:20→16:41)
[2016-12-18] MEDS ORDERED: diphenhydrAMINE 50 MG/ML SDV IVPUSH PRN ×2 (15:20→16:41)
--- NOTE | 2016-12-18 15:35 | PCM.POSTAN ---
POST ANESTHESIA ASSESSMENT - MENTAL STATUS Mental Status: alert, oriented - VITAL SIGNS Pulse Rate: 71 SaO2: 97 Resp Rate: 13 Blood Pressure: 115/55 Temperature: 36.6 C - RESPIRATORY Respiratory Status: respiratory rate WNL, airway patent, O2 saturation stable, supplemental oxygen - CARDIOVASCULAR CV Status: pulse rate WNL, blood pressure stable - GASTROINTESTINAL GI Status: no symptoms - PAIN Pain Score: 0 - POST OP HYDRATION Hydration Status: adequate & stable
[2016-12-18] MEDS ORDERED: Lanolin 100% Cream 7 GM Tube TOP PRN (16:41)
[2016-12-18] MEDS ORDERED: Dextrose 5%-0.45% NaCl 1,000 ML IV SCH (16:41)
[2016-12-18] MEDS ORDERED: Ondansetron 4 MG/2 ML SDV IV PRN (16:41)
[2016-12-18] MEDS ORDERED: Dextrose 5%-Lactated Ringers 1,000 ML IV SCH (16:41)
[2016-12-18] MEDS ORDERED: Naloxone 0.4 MG/ML SDV IVPUSH PRN (16:41)
[2016-12-18] MEDS: Simethicone 80 MG Tab.Chew PO SCH ×2 (18:51→22:47)
[2016-12-18] MEDS: Ibuprofen 800 MG Tab PO SCH (20:36)
[2016-12-18] MEDS: Enoxaparin 40 MG/0.4 ML Syringe SUBCUT SCH (22:47)
[2016-12-19] MEDS: Acetaminophen/oxyCODONE 325-5 MG Tab PO PRN ×4 (01:23→18:50)
[2016-12-19] MEDS: Ibuprofen 800 MG Tab PO SCH ×3 (04:06→19:58)
[2016-12-19] MEDS: Docusate Sodium 100 MG Cap PO PRN ×2 (06:33→22:11)
--- NOTE | 2016-12-19 07:42 | PCM48HPAN ---
Post Anesthesia Note - EVALUATION WITHIN 48HRS OF ANESTHETIC Vital Signs in Normal Range: Yes Patient Participated in Evaluation: Yes Respiratory Function Stable: Yes Airway Patent: Yes Cardiovascular Function Stable: Yes Hydration Status Stable: Yes Pain Control Satisfactory: Yes Nausea and Vomiting Control Satisfactory: Yes Mental Status Recovered: Yes
[2016-12-19] MEDS: Simethicone 80 MG Tab.Chew PO SCH ×4 (08:44→22:11)
--- NOTE | 2016-12-19 15:40 | PCM.SN ---
- Free Text/Narrative Note: Patient on postoperative day 1. She is at very well, has minimal discomfort. She is nursing without concerns. Vital signs stable. Patient is afebrile. Abdomen is flat, soft, nontender and. Incision is intact. Legs nontender. Patient was started on Lovenox 40 mg subcutaneous each evening. Will continue for 6 weeks. Assessment/plan: Postoperative day 1-doing well. Home tomorrow. Routine cares.
[2016-12-19] MEDS: Enoxaparin 40 MG/0.4 ML Syringe SUBCUT SCH (22:11)
[2016-12-20] MEDS: Acetaminophen/oxyCODONE 325-5 MG Tab PO PRN ×4 (00:12→12:50)
[2016-12-20] MEDS: Ibuprofen 800 MG Tab PO SCH ×2 (03:24→11:32)
[2016-12-20] MEDS: Simethicone 80 MG Tab.Chew PO SCH ×2 (09:05→12:50)
[2016-12-20] MEDS: Docusate Sodium 100 MG Cap PO PRN (09:07)
[2016-12-20 10:43] VITALS: BP 96/70
--- NOTE | 2016-12-20 12:21 | PCM.OPNOTE ---
- General Post-Op/Procedure Note Date of Surgery/Procedure: 12/18/16 Operative Procedure(s): Repeat lower uterine segment transverse section Findings: Viable nelson male . Uterus is very thin the floor in segment. Less than 1 mm thick. Ovaries tubes uterus otherwise appeared normal. Pre Op Diagnosis: 37 week intrauterine , active labor, history previous section desire for repeat section Post-Op Diagnosis: Same with delivery of a 7 lbs. 14 oz. female with Apgars of 8 and 9 at 1453 hours on 12/18/2016 Anesthesia Technique: Spinal Other Anesthesia Type: Marcaine 0.5% test 20 cc locally in the incision site. Primary Surgeon: Yadiel Wilder Secondary Surgeon: Mary Cruz Anesthesia Provider: Favian Dooley Complications: None Condition: Good Free Text/Narrative:: Intake & Output 12/19/16 12/20/16 12/20/16 22:59 06:59 14:59 Intake Total 320 240 Balance 320 240 Surgeon duration: 35 minutes Complications: None Specimens: None Procedure: Patient was transferred the room and placed in a sitting position. Spinal anesthesia was administered. After adequate anesthesia patient was placed in a supine position with a wedge under her right side to facilitate left lateral positioning. The patient was prepped and draped in usual fashion after Newsome catheter was placed. The anesthetic was checked and found to be adequate. Marcaine 0.5%-20 cc was infiltrated into the section incision site. The Pfannenstiel skin incision was then made carried down to skin subcutaneous and fascial layers. The fascia was then undermined superiorly and inferiorly to allow for adequate operating room. The recti muscles were midline and preperitoneal fat was bluntly dissected. Peritoneal cavity was entered longitudinally. The vesicouterine peritoneum was then incised transversely and bladder flap was developed. The myometrium was found to be very thin no more than 2 mm in thickness. Myometrium was incised transversely to the level of the amniotic sac. This incision was extended bilaterally in a blunt fashion. The amniotic sac was then ruptured resulting clear amniotic fluid. A hand is placed into the lower uterine segment and the baby's head was brought forth through the incision. The baby was completely delivered using with fundal pressure in a routine fashion. The nose and mouth were bulb suctioned. Baby's cord was clamped x2 cut and baby was handed off to attending roll forming supervisor Dr. Cooper. Placenta was expressed after cord blood was obtained. Uterus was then exteriorized to allow for easier closure. The cervix was assessed and found to be dilated adequately to allow egress of blood. The uterus was closed in 2 layers. The first layer a running locked suture of 0 Monocryl, the second layer a running locked vertical mattress suture of 0 Monocryl. Hemostasis confirmed at this time. Sponge, instrument, needle counts are correct. The uterus was returned to the abdominal cavity and lateral gutters were cleared of blood. Once again sponge, needle counts are correct. The anterior abdominal wall was closed with a #1 PDS suture from angle to angle. The subcutaneous area was found to be free of any bleeders. Skin was closed with a running subcuticular stitch of 3-0 Monocryl in a vertical mattress suture fashion using a Faraz needle. It was further approximated with Dermabond Prineo skin mesh/glue. It should be noted that patient received 2 g of Ancef preoperatively for infection prophylaxis and had Pitocin infused after delivery of the placenta to facilitate uterine contraction. She also had sequential compression stockings in place for DVT prophylaxis. She will be started on Lovenox 40 mg subcutaneous Q. at bedtime for her increased risk because of her abnormal blood factors.
--- NOTE | 2016-12-20 12:25 | PCM.DCSUM1 ---
Discharge Summary - Hospital Course Free Text/Narrative:: Is a 36-year-old multigravida white female who is scheduled for repeat section next week. She came in in active labor. Was taken to section. Please see operative report for details. Postoperatively patient is doing well. She is nursing without problems, vital signs stable. Incision appears to be dry, intact and patient reports minimal lochia. She is desiring discharge home. - Discharge Data Discharge Date: 12/20/16 Discharge Disposition: DC/Tfer to [facility] Condition: Good - Patient Instructions Diet: Regular Diet as Tolerated (Nursing diet) Activity: As Tolerated (No intercourse or tampons until bleeding resolves. No lifting greater than 15 pounds or driving a car x1 week.) Driving: Do Not Drive Showering/Bathing: May Shower Wound/Incision Care: Keep Operative Site/Wound Site Clean and Dry Notify Provider of: Fever, Increased Pain, Swelling and Redness, Drainage, Nausea and/or Vomiting - Discharge Plan Home Medications: Home Meds PNV95/Ferrous Fumarate/FA [ Multivitamins] 1 tab PO DAILY 05/21/14 [ History] Acetaminophen/oxyCODONE [Percocet 325-5 MG] 2 tab PO Q4H PRN #30 tablet [Rx] Enoxaparin [Lovenox] 40 mg SUBCUT Q24H syringe 12/20/16 [Rx] Ibuprofen [IJD: Ibuprofen] 800 mg PO Q8H tablet 12/20/16 [Rx] Patient Handouts: Mastitis, Breast Pumping Tips, and Mastitis, Care After Delivery, Breast Engorgement, Pelvic Rest, and Nursing Strike, Challenges and Solutions Referrals: Yadiel Wilder MD [Physician] - ([facility] - Discharge Summary/Plan Comment DC Time >30 min.: No Discharge Summary/Plan Comment: Discharge instructions: Discharge home 2. Regular, high-fiber, nursing diet 3. Precautions given concern increased pain, bleeding, temperature. 4. Medications per home medications 20, discuss with them given to the patient I. [facility].. Diagnosis: 38 week intrauterine , delivered Condition: - Patient Data Vitals - Most Recent: Last Vital Signs Temp 36.4 C 12/20/16 10:34 Pulse 66 12/20/16 10:34 Resp 15 12/20/16 10:34 BP 96/70 12/20/16 10:34 Pulse Ox 98 12/20/16 10:34 Weight - Most Recent: 101.605 kg I&O - Last 24 hours: Intake & Output 12/19/16 12/20/16 12/20/16 22:59 06:59 14:59 Intake Total 320 240 Balance 320 240 Med Orders - Current: Current Medications Diphenhydramine HCl (Benadryl) 25 mg IVPUSH Q6H PRN PRN Reason: Itching or Nausea Last Admin: 12/18/16 20:37 Dose: 25 mg Docusate Sodium (Colace) 100 mg PO Q12H PRN PRN Reason: Constipation Last Admin: 12/20/16 09:07 Dose: 100 mg Emollient Ointment (Lansinoh Hpa) 0 gm TOP ASDIRECTED PRN PRN Reason: Sore Nipples Enoxaparin Sodium (Lovenox) 40 mg SUBCUT Q24H [facility] Last Admin: 12/19/16 22:11 Dose: 40 mg Ephedrine Sulfate (Ephedrine Sulfate) 5 mg IVPUSH SEECOMMENT PRN PRN Reason: Other Dextrose/Sodium Chloride (Dextrose 5%-1/2 Ns) 1,000 mls @ 125 mls/hr IV ASDIRECTED TIFFANY Ibuprofen (Motrin) 800 mg PO Q8H [facility] Last Admin: 12/20/16 11:32 Dose: 800 mg Naloxone HCl (Narcan) 0.1 mg IVPUSH SEECOMMENT PRN PRN Reason: Respiratory Depression Ondansetron HCl (Zofran) 4 mg IV Q4H PRN PRN Reason: Nausea/Vomiting Oxycodone/Acetaminophen (Percocet 325-5 Mg) 2 tab PO Q4H PRN PRN Reason: Pain (moderate 4-6) Last Admin: 12/20/16 09:05 Dose: 2 tab Simethicone (Simethicone) [facility] Last Admin: 12/20/16 09:05 Dose: 80 mg Discontinued Medications Bupivacaine HCl (Marcaine 0.5%) Confirm Administered Dose 30 ml .ROUTE .STK-MED ONE Stop: 12/18/16 13:38 Last Admin: 12/18/16 14:50 Dose: 20 ml Cefazolin Sodium (Ancef) Confirm Administered Dose 2 gm .ROUTE .[facility] ONE Stop: 12/18/16 13:54 Citric Acid/Sodium Citrate (Bicitra Solution) 30 ml PO ONETIME ONE Stop: 12/18/16 13:30 Last Admin: 12/18/16 13:44 Dose: 30 ml Diphenhydramine HCl (Benadryl) 25 mg IVPUSH Q6H PRN PRN Reason: Pruritis Ephedrine Sulfate (Ephedrine Sulfate) 5 mg IVPUSH ASDIRECTED PRN PRN Reason: Hypotension Lactated Ringer's (Ringers, Lactated) Confirm Administered Dose 1,000 mls @ as directed .ROUTE .[facility] ONE Stop: 12/18/16 13:18 Last Admin: 12/18/16 13:42 Dose: 1,000 ml Lactated Ringer's (Ringers, Lactated) 1,000 mls @ 125 mls/hr IV ASDIRECTED [facility] Last Admin: 12/18/16 14:04 Dose: 125 mls/hr Cefazolin Sodium/Dextrose 2 gm (/ Premix) 50 mls @ 100 mls/hr IV ONETIME ONE Stop: 12/18/16 13:58 Last Admin: 12/19/16 00:26 Dose: Not Given Lactated Ringer's (Ringers, Lactated) Confirm Administered Dose 1,000 mls @ as directed .ROUTE .[facility] ONE Stop: 12/18/16 15:26 Dextrose/Lactated Ringer's (Dextrose 5%-Lactated Ringers) 1,000 mls @ 125 mls/ hr IV ASDIRECTED [facility] Stop: 12/19/16 00:40 Last Admin: 12/19/16 01:27 Dose: Not Given Ketorolac Tromethamine (Toradol) Confirm Administered Dose 30 mg .ROUTE .[facility] ONE Stop: 12/18/16 13:54 Meperidine HCl (Demerol) 12.5 mg IVPUSH ONETIME PRN PRN Reason: Shivering Metoclopramide HCl (Reglan) 10 mg IVPUSH ONETIME ONE Stop: 12/18/16 13:30 Last Admin: 12/18/16 13:45 Dose: 10 mg Morphine Sulfate (Duramorph Pf) Confirm Administered Dose 10 mg .ROUTE .ST[facility] ONE Stop: 12/18/16 13:54 Ondansetron HCl (Zofran) Confirm Administered Dose 4 mg .ROUTE .STK-MED ONE Stop: 12/18/16 13:54 Ondansetron HCl (Zofran) 4 mg IVPUSH ONETIME PRN PRN Reason: Nausea/Vomiting Oxytocin (Pitocin) Confirm Administered Dose 20 unit .ROUTE .STK-MED ONE Stop: 12/18/16 13:54 Sodium Chloride (Saline Flush) 10 ml FLUSH ASDIRECTED PRN PRN Reason: Keep Vein Open *Q Meaningful Use (DIS) - VTE *Q VTE Criteria *Q: - Stroke *Q Stroke Criteria *Q: - AMI *Q AMI Criteria *Q:
== END 2016-12-20 13:05 | disposition home or self-care (01) | DRG 765 ==
LOC: JD.US 08:56 → JD.OB 08:56 → JD.US 13:21 → JD.OB 13:22
PROVIDERS: ADMIT Obstetrics & Gynecology; ATTEND Obstetrics & Gynecology
PROC: 10D00Z1 Extraction of Products of Conception, Low, Open Approach (ICD-10-PCS; principal; 2016-12-18)
DX: O60.14X0 Preterm labor third trimester with preterm delivery third trimester, not applicable or unspecified (principal); O99.12 Other diseases of the blood and blood-forming organs and certain disorders involving the immune mechanism complicating childbirth; D68.52 Prothrombin gene mutation; O34.211 Maternal care for low transverse scar from previous cesarean delivery; Z3A.37 37 weeks gestation of pregnancy; Z37.0 Single live birth; N85.8 Other specified noninflammatory disorders of uterus
CPT/HCPCS: 01961; 36415; 76816; 76819; 76819-26; 81003; 85025; 85027; 86850; 86900; 86901; 94762; A9270-GY; J0690; J1200; J1650; J1885; J2270; J2405; J2590; J2765; J7120

== ENCOUNTER 2019-10-12 07:21 | Inpatient (IN) | payer OTHER ==
[~2019-10-12 07:21] MED LIST: Lidocaine 1%/Sod Bicarbonate in NS 8.4% 1 ML Syringe IDERM PRN; Sodium Chloride 0.9% 10 ML Syringe FLUSH PRN
[2019-10-12] MEDS: Lactated Ringers 1,000 ML IV SCH ×2 (07:55→17:16)
--- NOTE | 2019-10-12 08:00 | PCM.PREANE ---
Preanesthetic Assessment - Procedure Proposed Procedure: Total abdominal hysterectomy followed by abdominal hernia repair - Anesthesia/Transfusion/Family Hx Anesthesia History: Prior Anesthesia Reaction Transfusion History: No Prior Transfusion(s) Type of Transfusion Reactions: Reports: Unknown - Review of Systems General: No Symptoms Pulmonary: No Symptoms Cardiovascular: No Symptoms Gastrointestinal: No Symptoms Neurological: No Symptoms Other: Reports: None - Physical Assessment NPO Status Date: 10/11/19 NPO Status Time: 19:00 Vital Signs: Last Vital Signs Temp 97.7 F 10/12/19 07:35 Pulse 62 10/12/19 07:35 Resp 16 10/12/19 07:35 BP 131/83 10/12/19 07:35 Pulse Ox 98 10/12/19 07:35 Height: 1.6 m Weight: 88.451 kg ASA Class: 2 Mental Status: Alert & Oriented x3 Airway Class: Mallampati = 2 Dentition: Reports: Normal Dentition Thyro-Mental Finger Breadths: 4 Mouth Opening Finger Breadths: 3 ROM/Head Extension: Full Lungs: Clear to Auscultation, Normal Respiratory Effort Cardiovascular: Regular Rate, Regular Rhythm - Lab Values: Laboratory Last Values WBC 4.70 K/mm3 (3.98-10.04) 10/04/19 10:55 RBC 4.48 M/mm3 (3.98-5.22) 10/04/19 10:55 Hgb 13.6 gm/dl (11.2-15.7) D 10/04/19 10:55 Hct 41.8 % (34.1-44.9) 10/04/19 10:55 MCV 93.3 fl (79.4-94.8) 10/04/19 10:55 MCH 30.4 pg (25.6-32.2) 10/04/19 10:55 MCHC 32.5 g/dl (32.2-35.5) 10/04/19 10:55 RDW Std Deviation 42.7 fL (36.4-46.3) 10/04/19 10:55 Plt Count 319 K/mm3 (182-369) D 10/04/19 10:55 MPV 9.4 fl (9.4-12.3) 10/04/19 10:55 Neut % (Auto) 49.8 % (34.0-71.1) 10/04/19 10:55 Lymph % (Auto) 39.1 % (19.3-51.7) 10/04/19 10:55 Freestone % (Auto) 8.7 % (4.7-12.5) 10/04/19 10:55 Eos % (Auto) 1.5 (0.7-5.8) 10/04/19 10:55 Baso % (Auto) 0.9 % (0.1-1.2) 10/04/19 10:55 Neut # (Auto) 2.34 K/mm3 (1.56-6.13) 10/04/19 10:55 Lymph # (Auto) 1.84 K/mm3 (1.18-3.74) 10/04/19 10:55 Freestone # (Auto) 0.41 K/mm3 (0.24-0.36) H 10/04/19 10:55 Eos # (Auto) 0.07 K/mm3 (0.04-0.36) 10/04/19 10:55 Baso # (Auto) 0.04 K/mm3 (0.01-0.08) 10/04/19 10:55 Creatinine 0.7 mg/dL (0.55-1.02) 10/04/19 10:55 Est Cr Clr Drug Dosing TNP 10/04/19 10:55 Estimated GFR (MDRD) > 60 mL/min (>60) 10/04/19 10:55 Urine Color Light yellow (Yellow) 10/04/19 10:55 Urine Appearance Clear (Clear) 10/04/19 10:55 Urine pH 7.0 (5.0-8.0) 10/04/19 10:55 Ur Specific Arabi 1.020 (1.005-1.030) 10/04/19 10:55 Urine Protein Negative (Negative) 10/04/19 10:55 Urine Glucose (UA) Negative (Negative) 10/04/19 10:55 Urine Ketones Negative (Negative) 10/04/19 10:55 Urine Occult Blood Negative (Negative) 10/04/19 10:55 Urine Nitrite Negative (Negative) 10/04/19 10:55 Urine Bilirubin Negative (Negative) 10/04/19 10:55 Urine Urobilinogen 0.2 (0.2-1.0) 10/04/19 10:55 Ur Leukocyte Esterase Negative (Negative) 10/04/19 10:55 MRSA (PCR) Negative 10/04/19 09:24 - Allergies Allergies/Adverse Reactions: Allergies Allergy/AdvReac Type Severity Reaction Status Date / Time No Known Allergies Allergy Verified 10/11/19 14:37 - Acknowledgements Anesthesia Type Planned: General Anesthesia, Spinal Pt an Appropriate Candidate for the Planned Anesthesia: Yes Alternatives and Risks of Anesthesia Discussed w Pt/Guardian: Yes Pt/Guardian Understands and Agrees with Anesthesia Plan: Yes PreAnesthesia Questionnaire Gastrointestinal History: Reports: Other (See Below) Other Gastrointestinal History: abdominal hernia 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 Dermatologic History: Reports: Eczema - Infectious Disease History Infectious Disease History: Reports: Chicken Pox - Past Surgical History Head Surgeries/Procedures: HEENT Surgical History: Reports: LASIK, Tonsillectomy, Other (See Below) Other HEENT Surgeries/Procedures: tonsillectomy 1987 Cardiovascular Surgical History: Reports: None Respiratory Surgical History: Reports: None GI Surgical History: Reports: None Female Surgical History: Reports: Section, D&C Musculoskeletal Surgical History: Reports: Arthroscopic Knee, Other (See Below) Other Musculoskeletal Surgeries/Procedures:: right hand surgery 2005 with hardware intact (2 screws) Dermatological Surgical History: Reports: None - SUBSTANCE USE Smoking Status *Q: Never Smoker Second Hand Smoke Exposure: No Recreational Drug Use History: No - HOME MEDS Home Medications: Home Meds Multivitamin [Daily Multiple Vitamin] 1 tab PO DAILY 10/11/19 [History] - CURRENT (IN HOUSE) MEDS Current Meds: Current Medications Lactated Ringer's (Ringers, Lactated) 1,000 mls @ 125 mls/hr IV ASDIRECTED TIFFANY Lidocaine/Sodium Bicarbonate (Buffered Lidocaine 1% In Ns 8.4%) 0.25 ml IDERM ONETIME PRN PRN Reason: Prior to IV Start Sodium Chloride (Saline Flush) 10 ml FLUSH ASDIRECTED PRN PRN Reason: Keep Vein Open
[2019-10-12] MEDS ORDERED: Propofol 200 MG/20 ML SDV ONE ×3 (08:26→11:15)
[2019-10-12] MEDS ORDERED: fentaNYL 100 MCG/2 ML SDV ONE (08:27)
[2019-10-12] MEDS ORDERED: Midazolam 1 MG/ML 2 ML SDV ONE (08:27)
[2019-10-12] MEDS ORDERED: Morphine PF 10 MG/10 ML SDV ONE (08:27)
[2019-10-12] MEDS ORDERED: Lidocaine 1% 6 ML ONE (08:28)
[2019-10-12] MEDS ORDERED: EPINEPHrine 1 MG/ML SDV ONE (08:36)
[2019-10-12] MEDS ORDERED: Bupivacaine 0.75% 30 ML SDV ONE (08:38)
[2019-10-12] MEDS ORDERED: ePHEDrine/Normal Saline 25 MG/5 ML Syringe ONE (10:12)
[2019-10-12] MEDS: Bupivacaine 0.5% 30 ML SDV ONE ×2 (10:26→10:39)
[2019-10-12] MEDS ORDERED: Lactated Ringers 1,000 ML ONE (10:31)
[2019-10-12] MEDS: Bupivacaine 0.5%/EPINEPHrine 1:200,000 50 ML MDV ONE ×2 (10:40→11:28)
[2019-10-12] MEDS ORDERED: Phenylephrine/Normal Saline 100 MCG/ML 10 ML Syringe ONE (10:42)
[2019-10-12] MEDS ORDERED: diphenhydrAMINE 50 MG/ML SDV IVPUSH PRN (10:59)
[2019-10-12] MEDS ORDERED: Ondansetron 4 MG/2 ML SDV IVPUSH PRN ×2 (10:59→17:14)
--- NOTE | 2019-10-12 11:09 | PCM.OPNOTE ---
- General Post-Op/Procedure Note Date of Surgery/Procedure: 10/12/19 Operative Procedure(s): Total abdominal hysterectomy with bilateral salpingectomy Findings: Moderate scarring involving the anterior abdominal wall. Some minimal anterior cul-de-sac scarring secondary to C-sections. Ovaries appeared to be normal and functional in appearance. Pre Op Diagnosis: 1. Menorrhagia Post-Op Diagnosis: Same Anesthesia Technique: MAC, Spinal Primary Surgeon: Yadiel Wilder Secondary Surgeon: Jim Benjamin Anesthesia Provider: Antwan Guerrero Reason Case Reviewer Was Necessary: Retraction, assistance, patient safety, quality of care. Pathology: Uterus, tubes and ovaries in one specimen container. EBL in mLs: 20 Drain/Tube Comments:: Indwelling bladder catheter during surgery. Complications: None Condition: Good Free Text/Narrative:: Surgery duration: Approximately 20 minutes. Surgery done in conjunction with Dr. Eduardo Blackburn who did an umbilical hernia repair after the hysterectomy was performed. Procedure: After adequate consent was obtained, the patient was taken to the operating room. She was given 2 g of Ancef IV for infection prophylaxis. She had sequential compression stockings placed for DVT prophylaxis. She is administered general endotracheal anesthesia. After adequate administration of anesthesia patient was placed in a frog-leg position and was prepped vaginally and abdominally in the routine fashion. Newsome catheter was placed. Patient's abdomen was then opened through her old Pfannenstiel skin incision scar. The incision was carried down through skin, subcutaneous and fascial layers. Moderately dense adhesions/scar tissue were apparent. Abdominal cavity was entered without problems. A medium sized Kahlil self-retaining retractor was placed. The uterus was elevated with a double-tooth tenaculum at the fundus. Anterior cul-de-sac was noted to have bladder adherent to the front side of the uterus. The secondary to previous C-sections. Using a Enseal vessel closure device the right infundibulopelvic ligament and eventually the fallopian tube mesosalpinx was taken down. Ovaries were conserved per patient desire. The ovarian ligament, round ligament, broad ligament were then taken down in a routine stepwise fashion using the Enseal system. Same was done on patient's left side. The cardinal ligaments and taken down on each side to the level of the to the cervix. The angles of the vagina were then crossclamped using Radha clamps 2 these pedicles were cut and were suture ligated with Radha stitch of #1 Vicryl. A short running locked #1 Vicryl suture was then placed in the mid incision to complete the closure. A short running stitch was placed on the right posterior aspect of the vaginal cuff for hemostasis. Hemostasis was confirmed at this time. The pelvis was irrigated with fluid which was aspirated. The abdominal was then closed per Dr. Blackburn. Please see his separate operative report for details concerning his portion of the procedure.
--- NOTE | 2019-10-12 11:53 | PCM.PRNOTE ---
- Free Text/Narrative Note: Date: 10/12/2019 Operation: open primary repair of umbilical hernia Surgeon: Eduardo Blackburn MD Findings: Very small umbilical hernia- the fascia was imbricated at the level of the umbilicus for a length of approximately 4 cm. No fascial defect was palpable afterwards. Detailed Report: (This operation was done following abdominal hysterectomy/bilateral salpingectomy with Drs. Wilder and Cassidy; see their operative report for their portion.) The Bookwalter retractor was set up and the superior portion of the Pfannenstiel incision retracted superiorly and anteriorly, exposing the peritoneum of the anterior abdominal wall. It was difficult to even appreciate a hernia at the umbilicus. No other ventral hernia was visualized or palpated. The fascia at the level of the umbilicus was closed at the midline with running 0 vicryl suture. No fascial defect was palpable after primary closure of the midline. The edges of the peritoneum were closed along the midline with running 0 PDS suture. The anterior rectus fascia was then closed transversely with running 0 vicryl suture. An additional 20 cc 0.5% marcaine was injected at this time, and skin was closed with a running subcuticular stitch using absorbable suture. The wound was dressed with dermabond. The patient tolerated the procedure well, was extubated in the OR and transferred to the recovery unit for routine post-anesthesia care. Eduardo Blackburn MD General Surgery
--- NOTE | 2019-10-12 12:00 | PCM.POSTAN ---
POST ANESTHESIA ASSESSMENT - MENTAL STATUS Mental Status: Alert, Oriented - VITAL SIGNS Vital Signs: Last Vital Signs Temp 99.1 F 10/12/19 11:49 Pulse 103 H 10/12/19 11:49 Resp 14 10/12/19 11:49 BP 99/52 L 10/12/19 11:49 Pulse Ox 94 L 10/12/19 11:49 - RESPIRATORY Respiratory Status: Respiratory Rate WNL, Airway Patent, O2 Saturation Stable - CARDIOVASCULAR CV Status: Pulse Rate WNL, Blood Pressure Stable - GASTROINTESTINAL GI Status: No Symptoms - PAIN Pain Score: 0 (post SAB) - POST OP HYDRATION Hydration Status: Adequate & Stable
[2019-10-12] MEDS: Ketorolac 30 MG/ML SDV IVPUSH SCH ×2 (14:49→20:35)
[2019-10-12] MEDS ORDERED: diphenhydrAMINE 50 MG Cap PO PRN (16:43)
[2019-10-12] MEDS ORDERED: diphenhydrAMINE 50 MG/ML SDV IVPUSH ONE (17:00)
[2019-10-12] MEDS ORDERED: Ondansetron 4 MG/2 ML SDV IVPUSH SCH (17:00)
[2019-10-12] MEDS ORDERED: Ondansetron 4 MG/2 ML SDV ONE (17:08)
[2019-10-13] MEDS: Ketorolac 30 MG/ML SDV IVPUSH SCH (01:46)
[2019-10-13] MEDS: Acetaminophen/oxyCODONE 325-5 MG Tab PO PRN ×2 (06:15→10:08)
--- NOTE | 2019-10-13 08:05 | PCM48HPAN ---
Post Anesthesia Note - EVALUATION WITHIN 48HRS OF ANESTHETIC Vital Signs in Normal Range: Yes Patient Participated in Evaluation: Yes Respiratory Function Stable: Yes Airway Patent: Yes Cardiovascular Function Stable: Yes Hydration Status Stable: Yes Pain Control Satisfactory: Yes Nausea and Vomiting Control Satisfactory: Yes Mental Status Recovered: Yes Vital Signs: Last Vital Signs Temp 36.6 C 10/13/19 04:00 Pulse 57 L 10/12/19 20:40 Resp 18 10/12/19 20:40 BP 110/69 10/13/19 04:00 Pulse Ox 94 L 10/13/19 06:50
--- NOTE | 2019-10-13 08:58 | PCM.SN ---
- Free Text/Narrative Note: Patient doing well. Pain is now under good control. Has some discomfort during the night. Taking ibuprofen and Percocet. Voiding well. Ambulating without concerns. Vital signs stable. Patient is afebrile. Lungs are clear with good breath sounds in all lung estrella. Cardiovascular exam shows regular and rhythm. Abdomen soft, nontender. Incision appears to be dry. Positive bowel sounds are noted. Legs are without significant edema or discomfort. Assessment: 1. Postoperative day 1 status post total abdominal hysterectomy with bilateral salpingectomy and umbilical hernia repairdoing well. Plan: Consider discharge home later today.
[2019-10-13] MEDS ORDERED: Ibuprofen 400 MG Tab PO PRN (10:46)
[2019-10-13] MEDS: Ibuprofen 800 MG Tab PO PRN ×2 (12:20→20:35)
[2019-10-13] MEDS ORDERED: traMADol 50 MG Tab PO PRN (14:00)
[2019-10-13] MEDS: Acetaminophen/HYDROcodone 325-5 MG Tab PO PRN ×2 (16:36→21:49)
[2019-10-13] MEDS: Docusate Sodium 100 MG Cap PO SCH ×2 (16:36→20:35)
[2019-10-14] MEDS: Acetaminophen/HYDROcodone 325-5 MG Tab PO PRN ×2 (03:18→08:19)
--- NOTE | 2019-10-14 05:54 | PCM.DCSUM1 ---
Discharge Summary - Hospital Course Free Text/Narrative:: Anette is a 38-year-old 5 para 4014 white female who was admitted on 2019 or a total abdominal hysterectomy with bilateral salpingectomy to be done by myself and an repair to be done by Dr. Eduardo Blackburn. Diagnosis was menorrhagia. Patient had had 4 previous sections without any vaginal deliveries. Procedure, risks, benefits, limitations and follow-up of the hysterectomy were discussed with patient. She was comfortable with these and procedure was performed. Postoperatively. Was controlled initially with Duramorph through a spinal block along with Toradol IV. It was switched to oral ibuprofen and Percocet after approximately 20 hours. Percocet and eventually Toradol were used but did not give support adequate pain relief and patient was then switched to Narco which did give good relief. Patient has done well since that time. Her vital signs been stable throughout the hospital course she's been afebrile. Incision appears to be healing well. She is desiring discharge home. Diagnosis: Stroke: No - Discharge Data Discharge Date: 10/14/19 Discharge Disposition: Home, Self-Care 01 Condition: Good - Referral to Home Health Primary Care Physician: PCP None - Patient Summary/Data Operative Procedure(s) Performed: Total abdominal hysterectomy with bilateral salpingectomy - Patient Instructions Diet: Regular Diet as Tolerated (High-fiber diet) Activity: As Tolerated (No intercourse or tampons until seen back. No lifting greater than 15 pounds 1 week. No driving a car 1 week.) Driving: Do Not Drive Showering/Bathing: May Shower Wound/Incision Care: Keep Operative Site/Wound Site Clean and Dry Notify Provider of: Fever, Increased Pain, Swelling and Redness, Drainage, Nausea and/or Vomiting - Discharge Plan Home Medications: Home Meds Multivitamin [Daily Multiple Vitamin] 1 tab PO DAILY 10/11/19 [History] Acetaminophen/HYDROcodone [Dryden 325-5 MG] 2 tab PO Q4H PRN tablet 10/14/19 [Rx ] Ibuprofen [Motrin] 800 mg PO Q6H PRN tablet 10/14/19 [Rx] Patient Handouts: Abdominal Hysterectomy, [id number] Referrals: Yadiel Wilder MD [Physician] - (Return to clinicDr. Wilder2-4 weeks.) - Discharge Summary/Plan Comment DC Time >30 min.: No Discharge Summary/Plan Comment: Discharge instructions: 1. Discharge home 2. Diet, activity and follow-up discussed with patient. High-fiber diet recommended. 3. Precautions given concern increased pain, bleeding, temperature, signs/ symptoms of DVT/PE. 4. Medications per home medication was printed, discussed with and given to the patient. 5. Return to clinic-Dr. Wilder-[facility] in 2-4 weeks. Diagnosis: 1. Menorrhagia is post total abdominal hysterectomy with bilateral salpingectomy per Dr. Yadiel Wilder 2. Umbilical hernia With repair per Dr. Eduardo Blackburn Condition: Good - Patient Data Vitals - Most Recent: Last Vital Signs Temp 36.5 C 10/14/19 03:17 Pulse 78 10/14/19 03:17 Resp 17 10/14/19 03:17 BP 114/63 10/14/19 03:17 Pulse Ox 96 10/14/19 03:17 Weight - Most Recent: 90.31 kg I&O - Last 24 hours: Intake & Output 10/13/19 10/13/19 10/14/19 14:59 22:59 06:59 Intake Total 90 3800 1120 Output Total 3100 2150 Balance 90 700 -1030 Lab Results - Last 24 hrs: Laboratory Results - last 24 hr 10/13/19 Range/Units 05:26 WBC 6.63 (3.98-10.04) K/mm3 RBC 3.72 L (3.98-5.22) M/mm3 Hgb 11.3 D (11.2-15.7) gm/dl Hct 35.5 (34.1-44.9) % MCV 95.4 H (79.4-94.8) fl MCH 30.4 (25.6-32.2) pg MCHC 31.8 L (32.2-35.5) g/dl RDW Std Deviation 42.4 (36.4-46.3) fL Plt Count 225 D (182-369) K/mm3 MPV 9.1 L (9.4-12.3) fl Med Orders - Current: Current Medications Hydrocodone Bitart/Acetaminophen (Dryden 325-5 Mg) 2 tab PO Q4H PRN PRN Reason: Pain Last Admin: 10/14/19 03:18 Dose: 2 tab Diphenhydramine HCl (Benadryl) 50 mg PO Q6H PRN PRN Reason: pruritis Docusate Sodium (Colace) 100 mg PO BID TIFFANY Last Admin: 10/13/19 20:35 Dose: 100 mg Ibuprofen (Motrin) 800 mg PO Q6H PRN PRN Reason: PAIN Last Admin: 10/13/19 20:35 Dose: 800 mg Ondansetron HCl (Zofran) 4 mg IVPUSH Q4H PRN PRN Reason: Nausea/Vomiting Discontinued Medications Bupivacaine HCl (Sensorcaine-Mpf 0.75%) Confirm Administered Dose 30 ml .ROUTE .STK-MED ONE Stop: 10/12/19 08:39 Bupivacaine HCl (Marcaine 0.5%) Confirm Administered Dose 30 ml .ROUTE .STK-MED ONE Stop: 10/12/19 09:40 Last Admin: 10/12/19 10:26 Dose: 29 ml Bupivacaine HCl/Epinephrine Bitart (Marcaine 0.5%/Epinephrine 1:200,000) Confirm Administered Dose 50 ml .ROUTE .STK-MED ONE Stop: 10/12/19 08:43 Last Admin: 10/12/19 11:28 Dose: 11 ml Diphenhydramine HCl (Benadryl) 25 mg IVPUSH Q6H PRN PRN Reason: Pruritis Stop: 10/12/19 13:00 Last Admin: 10/12/19 12:14 Dose: 25 mg Diphenhydramine HCl (Benadryl) 25 mg IVPUSH ONETIME ONE Stop: 10/12/19 17:01 Last Admin: 10/12/19 16:59 Dose: 25 mg Ephedrine Sulfate (Ephedrine In Ns) Confirm Administered Dose 25 mg .ROUTE .STK- MED ONE Stop: 10/12/19 10:13 Epinephrine HCl (Adrenalin) Confirm Administered Dose 1 mg .ROUTE .STK-MED ONE Stop: 10/12/19 08:37 Fentanyl (Sublimaze) Confirm Administered Dose 100 mcg .ROUTE .STK-MED ONE Stop: 10/12/19 08:28 Lactated Ringer's (Ringers, Lactated) 1,000 mls @ 125 mls/hr IV ASDIRECTED TIFFANY Stop: 10/12/19 23:00 Last Admin: 10/12/19 17:16 Dose: 125 mls/hr Lidocaine HCl (Xylocaine-Mpf 1%) Confirm Administered Dose 6 mls @ as directed .ROUTE .STK-MED ONE Stop: 10/12/19 08:29 Lactated Ringer's (Ringers, Lactated) Confirm Administered Dose 1,000 mls @ as directed .ROUTE .STK-MED ONE Stop: 10/12/19 10:32 Ibuprofen (Motrin) 400 mg PO Q4H PRN PRN Reason: Pain Ketorolac Tromethamine (Toradol) 30 mg IVPUSH Q6H [facility] Stop: 10/13/19 02:46 Last Admin: 10/13/19 01:46 Dose: 30 mg Lidocaine/Sodium Bicarbonate (Buffered Lidocaine 1% In Ns 8.4%) 0.25 ml IDERM ONETIME PRN PRN Reason: Prior to IV Start Stop: 10/12/19 18:00 Last Admin: 10/12/19 07:50 Dose: 0.25 ml Midazolam HCl (Versed 1 Mg/Ml) Confirm Administered Dose 4 mg .ROUTE .STK-MED ONE Stop: 10/12/19 08:28 Morphine Sulfate (Duramorph Pf) Confirm Administered Dose 10 mg .ROUTE .STK-MED ONE Stop: 10/12/19 08:28 Ondansetron HCl (Zofran) 4 mg IVPUSH ONETIME PRN PRN Reason: Nausea/Vomiting Stop: 10/12/19 13:00 Ondansetron HCl (Zofran) 4 mg IVPUSH Q4H [facility] Last Admin: 10/12/19 17:12 Dose: 4 mg Ondansetron HCl (Zofran) Confirm Administered Dose 4 mg .ROUTE .STK-MED ONE Stop: 10/12/19 17:09 Last Admin: 10/12/19 17:12 Dose: Not Given Oxycodone/Acetaminophen (Percocet 325-5 Mg) 2 tab PO Q4H PRN PRN Reason: Pain Last Admin: 10/13/19 10:08 Dose: 2 tab Phenylephrine HCl (Phenylephrine In Ns 100 Mcg/Ml) Confirm Administered Dose 1 mg .ROUTE .STK-MED ONE Stop: 10/12/19 10:43 Propofol (Diprivan 20 Ml) Confirm Administered Dose 600 mg .ROUTE .STK-MED ONE Stop: 10/12/19 08:27 Propofol (Diprivan 20 Ml) Confirm Administered Dose 200 mg .ROUTE .STK-MED ONE Stop: 10/12/19 11:07 Propofol (Diprivan 20 Ml) Confirm Administered Dose 200 mg .ROUTE .STK-MED ONE Stop: 10/12/19 11:16 Sodium Chloride (Saline Flush) 10 ml FLUSH ASDIRECTED PRN PRN Reason: Keep Vein Open Stop: 10/12/19 18:00 Tramadol HCl (Ultram) 50 mg PO Q4H PRN PRN Reason: Pain Last Admin: 10/13/19 14:13 Dose: 50 mg
[2019-10-14] MEDS: Docusate Sodium 100 MG Cap PO SCH (08:19)
[2019-10-14 17:57] VITALS: BP 126/96; PULSE 59
== END 2019-10-14 09:47 | disposition home or self-care (01) | DRG 742 ==
LOC: UNDOADMIN 07:21 → JD.MS 07:21 → UNDODISIN 10-14 09:47
PROVIDERS: ADMIT Obstetrics & Gynecology; ATTEND Obstetrics & Gynecology
PROC: 0WQF0ZZ Repair Abdominal Wall, Open Approach (ICD-10-PCS; principal; 2019-10-12)
PROC: 0UT90ZZ Resection of Uterus, Open Approach (ICD-10-PCS; 2019-10-12)
PROC: 0UT70ZZ Resection of Bilateral Fallopian Tubes, Open Approach (ICD-10-PCS; 2019-10-12)
DX: N92.0 Excessive and frequent menstruation with regular cycle (principal); D68.52 Prothrombin gene mutation; K42.9 Umbilical hernia without obstruction or gangrene
CPT/HCPCS: 00750; 36415; 81003; 81025; 82565; 85025; 85027; 86850; 86900; 86901; 87641; 94760; 94762; A9270-GY; J0171; J1200; J1885; J2001; J2250; J2270; J2370; J2405; J2704; J3010; J3490; J7050; J7120